=== PATIENT | male | born 1980 | race Caucasian/White ===

== ENCOUNTER → 2020-08-13 09:08 | Outpatient (CLI) | payer BC, SELFPAY ==
--- NOTE | 2020-08-13 09:18 | XR_ITS ---
PROCEDURE: XR FOOT WT BEARING RT 3V CLINICAL INDICATION: pain Plantar fasciitis COMPARISON: No exams were available for comparison FINDINGS: No fracture or dislocation. No lytic or blastic change. There is normal mineralization. The joint spaces are well-preserved. No significant degenerative/arthritic changes. No erosive changes evident. Other findings:There is a tiny calcaneal spur without erosive change IMPRESSION: Negative right foot Dictated by: Paolo Mcqueen MD 08/13/2020 10:50 Paolo Mcqueen MD in [facility] 08/13/2020 10:50
--- NOTE | 2020-08-13 09:18 | XR_ITS ---
PROCEDURE: XR FOOT WT BEARING LT 3V CLINICAL INDICATION: pain Plantar fasciitis COMPARISON: No exams were available for comparison FINDINGS: No fracture or dislocation. No lytic or blastic change. There is normal mineralization. The joint spaces are well-preserved. No significant degenerative/arthritic changes. No erosive changes evident. Other findings:There is a small calcaneal spur without erosive change. No soft tissue calcification apparent IMPRESSION: Small calcaneal spur otherwise negative Dictated by: Paolo Mcqueen MD 08/13/2020 10:49 Paolo Mcqueen MD in [place] 08/13/2020 10:49
== END ==
LOC: RAD 09:14
PROVIDERS: PCP Pediatrics; Visit Provider Podiatrist
DX: M72.2 Plantar fascial fibromatosis (principal)
CPT/HCPCS: 73630